=== PATIENT | female | born 1945 | race African-American/Black ===

== ENCOUNTER 2017-05-25 22:03 | Inpatient (IN) | payer OTHER, BC ==
[~2017-05-25] VITALS: Ht 154.9 cm; Wt 82.9 kg
--- NOTE | ~2017-05-25 | EKG ---
[address] [employer] [address] ELECTROCARDIOGRAM REPORT Name: SAUNDRA YUAN Room #: 237-P ADM IN M.R.#: [id number] Admission: 05/26/17 Attend Phys: Chriss Parker MD Discharge: Date of : 49 Report #: [id number] THIS REPORT FOR: //name// [facility] ED Test Date: 2017-05-25 Test Time: 22:10:33 Pat Name: SAUNDRA YUAN Department: Room: 237 Gender: F Verification Manager: LUCI : 1945 Requested By: Jesse Serna Order Number: [id number] MD: Patricio King Measurements Intervals [place] Rate: 36 P: ND: QRS: 21 QRSD: 112 T: 169 QT: 564 QTc: 437 Interpretive Statements Atrial fibrillation Borderline intraventricular conduction delay Repol abnrm suggests ischemia, diffuse leads No previous ECG available for comparison Electronically Signed On 05-26-2017 17:33:37 CDT by Patricio King [email or web address] <ELECTRONICALLY SIGNED> By: Patricio King MD, [facility] 05/26/17 1733 2210 09 Patricio King MD, FACC /EPI
[2017-05-25 22:30] VITALS: BP 104/62
[2017-05-25 23:04] LABS: ABSOLUTE NEUTROPHILS 7.6 thou/uL (1.4-8.2); BASOPHILS 1.4 % (0.0-2.0); EOSINOPHILS 0.3 % (0.0-3.0); HEMATOCRIT 34.3 % (37.0-47.0); LYMPHOCYTES 20.4 % (24.0-44.0); MCH 27.1 pg (26.0-34.0); MCHC 32.1 g/dL (28.0-37.0); MCV 84.5 fL (80.0-100.0); MONOCYTES 6.1 % (1.0-8.0); PLATELET COUNT 211 thou/uL (150-400); POLYS 71.8 % (36.0-66.0); RBC 4.06 mil/uL (4.20-5.00); RDW 19.3 % (10.5-14.5); WBC 10.6 thou/uL (4.0-11.0)
[2017-05-25 23:05] LABS: MANUAL DIFF NO
[2017-05-25 23:08] LABS: CALCIUM 9.1 mg/dL (8.5-10.1); POTASSIUM 5.8 mmol/L (3.5-5.1)
[2017-05-25 23:17] LABS: ALBUMIN 3.2 g/dL (3.4-5.0); TOTAL BILIRUBIN 0.6 mg/dL (<0.1-1.0); TOTAL PROTEIN 7.3 g/dL (6.4-8.2); TROPONIN-I 0.04 ng/mL (<0.04-0.07)
[2017-05-25] MEDS ORDERED: REQUIP 1 MG TABL1 M1 (23:47)
[2017-05-25] MEDS ORDERED: LIPITOR 20 MG T20 M1 PO (23:48)
[2017-05-25] MEDS ORDERED: GABAPENTIN 100100 MG (23:48)
[2017-05-25] MEDS ORDERED: MAGOX 400400 MG PO (23:49)
[2017-05-25] MEDS ORDERED: CALCIUM (23:49)
[2017-05-25] MEDS ORDERED: LANTUS100 UNIT/M SUBQ (23:51)
[2017-05-25] MEDS ORDERED: LIDODERM 5%1 PATC1 TRANSDERM (23:51)
[2017-05-25] MEDS ORDERED: IMDUR 60 MG TAB60 M1 PO (23:52)
[2017-05-25] MEDS ORDERED: MIRALAX17 GM PO (23:52)
[2017-05-25] MEDS ORDERED: NEPHROCAPS SOFT1 CAP PO (23:52)
[2017-05-25] MEDS ORDERED: COLACE100 MG PO (23:52)
[2017-05-25] MEDS ORDERED: CARDIZEM CD180 MG PO (23:55)
[2017-05-25] MEDS ORDERED: ELIQUIS5 MG (23:55)
[2017-05-25] MEDS ORDERED: DUONEB 2.5-0.5 M3 ML (23:55)
[2017-05-25] MEDS ORDERED: TOPROL XL100 MG PO (23:56)
[2017-05-25] MEDS ORDERED: FOLIC ACID1 MG PO (23:57)
[2017-05-25] MEDS ORDERED: CALCITRIOL0.25 MCG (23:57)
[2017-05-25] MEDS ORDERED: HYDRALAZINE 2525 MG (23:58)
[2017-05-25] MEDS ORDERED: CARBIDOPA-LEVO1 EAC2 (23:58)
[2017-05-25] MEDS ORDERED: TRAMADOL 50 MG50 MG (23:59)
[2017-05-25] MEDS ORDERED: TYLENOL325 MG PO (23:59)
[2017-05-26] VITALS (24 sets, daily range): BP systolic 59–152; BP diastolic 30–128
[2017-05-26 21:06] LABS: HEP B SURFACE Ab(ANTI-HBS Non Reactive (())
[2017-05-27 03:18] VITALS: BP 120/80
[2017-05-27 07:11] LABS: ABG SAMPLE TYPE ARTERIAL; BE(vivo) 0.4 mmol/L (-2 to +3); HCO3 24.5 mmol/L (22.0-26.0); LACTATE 2.28 mmol/L (0.5-2.0); O2(CT) 14.1 mL/dL (15.0-23.0); O2Hb 89.4 % (92.0-98.0); PCO2 37.5 mmHg (35.0-45.0); PO2 62.8 mmHg (80.0-100.0); STICK SITE R.BRACHIAL; pH 7.433 (7.360-7.450); sO2 92.8 % (92.0-98.0); tCO2 25.7 mmol/L (24.0-30.0)
[2017-05-27 10:10] LABS: BASOPHILS 0.9 % (0.0-2.0); HEMATOCRIT 33.6 % (37.0-47.0); LYMPHOCYTES 11.1 % (24.0-44.0); MCH 27.1 pg (26.0-34.0); MCHC 32.6 g/dL (28.0-37.0); MONOCYTES 2.4 % (1.0-8.0); PLATELET COUNT 228 thou/uL (150-400); POLYS 85.6 % (36.0-66.0); RBC 4.05 mil/uL (4.20-5.00); RDW 19.9 % (10.5-14.5); WBC 10.6 thou/uL (4.0-11.0)
[2017-05-27 10:16] LABS: MANUAL DIFF NO
[2017-05-27 10:31] LABS: ALBUMIN 3.3 g/dL (3.4-5.0); CALCIUM 8.8 mg/dL (8.5-10.1); CREATININE 1.8 mg/dL (0.6-1.0); POTASSIUM 3.5 mmol/L (3.5-5.1); TOTAL BILIRUBIN 0.8 mg/dL (<0.1-1.0); TOTAL PROTEIN 7.8 g/dL (6.4-8.2)
[2017-05-27 11:28] VITALS: BP 129/95
[2017-05-27 15:50] VITALS: BP 117/75
[2017-05-27 20:30] VITALS: BP 116/76
[2017-05-27 23:39] VITALS: BP 135/95
[2017-05-28 04:23] VITALS: BP 135/85
[2017-05-28 06:16] LABS: HEMATOCRIT 36.3 % (37.0-47.0); HEMOGLOBIN 11.3 gm/dL (12.0-15.0); MCH 26.5 pg (26.0-34.0); MCHC 31.1 g/dL (28.0-37.0); MCV 85.2 fL (80.0-100.0); RBC 4.26 mil/uL (4.20-5.00); RDW 19.7 % (10.5-14.5)
[2017-05-28 06:27] LABS: ALBUMIN 3.1 g/dL (3.4-5.0); CALCIUM 9.2 mg/dL (8.5-10.1); POTASSIUM 4.4 mmol/L (3.5-5.1)
[2017-05-28 06:28] LABS: CREATININE 3.4 mg/dL (0.6-1.0)
[2017-05-28 08:02] VITALS: BP 138/92
[2017-05-28 12:17] VITALS: BP 129/94
[2017-05-28 15:03] VITALS: BP 140/82
[2017-05-28 20:15] VITALS: BP 120/72
[2017-05-29 05:26] VITALS: BP 133/88
[2017-05-29 06:51] LABS: HEMATOCRIT 36.4 % (37.0-47.0); HEMOGLOBIN 11.8 gm/dL (12.0-15.0); MCH 27.1 pg (26.0-34.0); MCHC 32.3 g/dL (28.0-37.0); MCV 83.9 fL (80.0-100.0); RBC 4.34 mil/uL (4.20-5.00); RDW 19.7 % (10.5-14.5); WBC 10.9 thou/uL (4.0-11.0)
[2017-05-29 07:11] LABS: PHOSPHORUS 6.8 mg/dL (2.5-4.9)
[2017-05-29 07:31] LABS: CREATININE 4.9 mg/dL (0.6-1.0); POTASSIUM 5.4 mmol/L (3.5-5.1)
[2017-05-29 07:58] VITALS: BP 141/92
[2017-05-29 10:59] VITALS: BP 130/86
[2017-05-29 19:20] VITALS: BP 128/82
[2017-05-30 04:03] VITALS: BP 134/86
[2017-05-30 05:19] LABS: HEMATOCRIT 37.4 % (37.0-47.0); MCH 26.9 pg (26.0-34.0); MCHC 32.1 g/dL (28.0-37.0); MCV 83.8 fL (80.0-100.0); RBC 4.46 mil/uL (4.20-5.00); RDW 19.4 % (10.5-14.5); WBC 12.8 thou/uL (4.0-11.0)
[2017-05-30 05:24] LABS: CALCIUM 8.6 mg/dL (8.5-10.1); CREATININE 5.8 mg/dL (0.6-1.0)
[2017-05-30 05:26] LABS: POTASSIUM 4.4 mmol/L (3.5-5.1)
[2017-05-30 08:36] VITALS: BP 134/97
[2017-05-30 09:15] LABS: NIL (NEGATIVE) CONTROL SPOT CT 0; PANEL A SPOT CT 2; PANEL B SPOT CT 5; T-SPOT.TB Borderline/Equivocal
[2017-05-30 09:21] LABS: POSITIVE CONTROL SPOT COUNT > 20
[2017-05-30 11:50] VITALS: BP 134/97
[2017-05-30 12:01] VITALS: BP 151/95
[2017-05-30] MEDS ORDERED: AUGMENTIN 875875 MG PO (14:06)
[2017-05-30] MEDS ORDERED: PREDNISONE 10 M10 MG PO (14:08)
== END 2017-05-30 18:43 | disposition home health service (06) | DRG 871 ==
LOC: ER 22:03 → ICU 05-26 00:41 → EROBS 05-26 00:41 → 4W 05-26 00:41 → ICU 05-26 02:54 → 4W 05-26 18:24
PROVIDERS: Emergency Medicine; Hospitalist; Internal Medicine Pulmonary Disease; Specialist
PROC: 5A1D60Z (ICD-10-PCS; principal; 2017-05-26)
DX: A41.9 Sepsis, unspecified organism (principal); J18.9 Pneumonia, unspecified organism; J96.21 Acute and chronic respiratory failure with hypoxia; N18.6 End stage renal disease; I13.2 Hypertensive heart and chronic kidney disease with heart failure and with stage 5 chronic kidney disease, or end stage renal disease; E87.1 Hypo-osmolality and hyponatremia; N17.9 Acute kidney failure, unspecified; E87.2 Acidosis; J44.9 Chronic obstructive pulmonary disease, unspecified; G20 Parkinson's disease; R00.1 Bradycardia, unspecified; Y95 Nosocomial condition; I10 Essential (primary) hypertension; E87.5 Hyperkalemia; E11.22 Type 2 diabetes mellitus with diabetic chronic kidney disease; I50.9 Heart failure, unspecified; E78.5 Hyperlipidemia, unspecified; I25.9 Chronic ischemic heart disease, unspecified; E11.42 Type 2 diabetes mellitus with diabetic polyneuropathy; G47.33 Obstructive sleep apnea (adult) (pediatric); I48.2 Chronic atrial fibrillation; E03.9 Hypothyroidism, unspecified; E87.70 Fluid overload, unspecified; I25.10 Atherosclerotic heart disease of native coronary artery without angina pectoris; Z95.1 Presence of aortocoronary bypass graft; Z90.710 Acquired absence of both cervix and uterus; Z85.118 Personal history of other malignant neoplasm of bronchus and lung; Z88.8 Allergy status to other drugs, medicaments and biological substances; Z79.4 Long term (current) use of insulin; Z79.899 Other long term (current) drug therapy; Z99.2 Dependence on renal dialysis
CPT/HCPCS: 10045; 32100